=== PATIENT | female | born 1960 | race Caucasian/White ===

== ENCOUNTER 2025-07-31 21:00 | Emergency (ER) | payer OTHER ==
[~2025-07-31] VITALS: Ht 167.6 cm; Wt 64.0 kg
[2025-07-31 21:10] VITALS: O2SAT 96
[2025-07-31] MEDS: CYCLOBENZAPRINE 10MG TABLET PO ONE (23:35)
[2025-07-31] MEDS: LIDOCAINE 5% PATCH TOP SCH (23:36)
[2025-07-31] MEDS: KETOROLAC 15MG/ML VIAL IM ONE (23:36)
[2025-08-01] MEDS ORDERED: CYCL5TAB3 MT (00:34)
[2025-08-01] MEDS ORDERED: NAPR-1176 MT (00:34)
[2025-08-01] MEDS ORDERED: LIDO-53 TP (00:34)
[2025-08-01 00:56] VITALS: BP 124/68; PULSE 71; RESP 16; TEMP 36.6; O2SAT 100
== END 2025-08-01 00:58 | disposition home or self-care (01) ==
LOC: ER 21:00
DX: R07.89 Other chest pain (principal); M54.2 Cervicalgia; J44.89 Other specified chronic obstructive pulmonary disease; Z79.1 Long term (current) use of non-steroidal anti-inflammatories (NSAID); Z88.8 Allergy status to other drugs, medicaments and biological substances; V49.9XXA Car occupant (driver) (passenger) injured in unspecified traffic accident, initial encounter; Y93.89 Activity, other specified; Y92.410 Unspecified street and highway as the place of occurrence of the external cause; Y99.9 Unspecified external cause status
CPT/HCPCS: 99283; 71045; 96372; J1885